=== PATIENT | male | born 1970 | race African-American/Black ===

== ENCOUNTER 2022-03-11 09:38 | Emergency (ER) | payer OTHER ==
[~2022-03-11] VITALS: Ht 180.3 cm; Wt 90.7 kg
[2022-03-11 09:51] VITALS: BP 166/92
[2022-03-11] MEDS ORDERED: CYCLOBENZAPRINE 10 MG TABLET PO ONE (10:30)
[2022-03-11] MEDS ORDERED: KETOROLAC TROMETHAMINE INJ 30 MG/ML VIAL IM ONE (10:30)
--- NOTE | 2022-03-11 10:34 | NUR ---
ICE PACK OFFERED BUT PT REFUSED.
[2022-03-11] MEDS ORDERED: CYCLOBENZAPRINE 10 MG TABLET ONE (10:37)
[2022-03-11] MEDS ORDERED: KETOROLAC TROMETHAMINE INJ 30 MG/ML VIAL ONE (10:37)
[2022-03-11] MEDS ORDERED: IBUP-1957 PO (10:44)
[2022-03-11] MEDS ORDERED: CYCL5TAB PO (10:44)
--- NOTE | 2022-03-11 11:07 | NUR ---
Patient discharged to home in stable condition. Written and verbal after care instructions given. Patient verbalizes understanding of instruction.
== END 2022-03-11 11:08 | disposition home or self-care (01) ==
LOC: ER 09:43
DX: S83.92XA Sprain of unspecified site of left knee, initial encounter (principal); I10 Essential (primary) hypertension; F17.200 Nicotine dependence, unspecified, uncomplicated; Z60.2 Problems related to living alone; Z79.899 Other long term (current) drug therapy; X58.XXXA Exposure to other specified factors, initial encounter; Y93.89 Activity, other specified; Y92.89 Other specified places as the place of occurrence of the external cause; Y99.8 Other external cause status
CPT/HCPCS: 73564; 96372; 99283; J1885

== ENCOUNTER 2022-06-06 06:09 | Emergency (ER) | payer OTHER ==
[~2022-06-06] VITALS: Ht 180.3 cm; Wt 88.5 kg
[~2022-06-06 06:09] MED LIST: CYCL5TAB PO; IBUP-1957 PO
--- NOTE | 2022-06-06 06:22 | NUR ---
BIBS FOR C/O PALPITATIONS SINCE THIS AM. -CP OR SOB. PT AWAKE AND ALERT BREATHING EVEN AND UNLABNORED. CHANGED INTO GOWN AND PLACED ON MONITOR AND NOTED TACHY IN 120S. MD WAS AT BEDSIDE FOR EVAL.
--- NOTE | 2022-06-06 06:32 | NUR ---
20G IV ESTABLISHED AT [facility]. BLOOD DRAWN AND SENT TO LAB
[2022-06-06 06:36] LABS: BASOPHILS # (AUTO) 0.1 K/uL (0.0-0.2); BASOPHILS % (AUTO) 1.2 % (0.0-2.0); EOSINOPHILS % (AUTO) 1.8 % (0.0-6.0); HEMATOCRIT 48 % (39-51); HEMOGLOBIN 15.2 g/dL (13.5-17.5); LYMPHOCYTES # (AUTO) 2.2 K/uL (0.8-4.8); LYMPHOCYTES % (AUTO) 29.1 % (20.0-44.0); MEAN CORPUSCULAR HGB CONC 32 g/dl (31.0-36.0); MEAN CORPUSCULAR VOLUME 81 fL (80-96); MONOCYTES # (AUTO) 0.7 K/uL (0.1-1.30); MONOCYTES % (AUTO) 9.4 % (2.0-12.0); NEUTROPHILS # (AUTO) 4.4 K/uL (1.8-8.9); NEUTROPHILS % (AUTO) 58.5 % (43.0-81.0); PLATELET COUNT (AUTO) 285 K/uL (150-450); RED BLOOD CELL COUNT(AUTO) 5.86 MIL/uL (4.5-6.0); WHITE BLOOD COUNT (AUTO) 7.6 K/uL (4.3-11.0)
--- NOTE | 2022-06-06 06:45 | NUR ---
XRAY AT BEDSIDE
[2022-06-06 06:50] LABS: CALCIUM, SERUM 9.5 mg/dL (8.5-10.1); CARBON DIOXIDE 27 mmol/L (21-32); CHLORIDE 102 mmol/L (98-107); CREATININE 1.5 mg/dL (0.6-1.3); GLUCOSE 173 mg/dL (74-106); SODIUM SERUM 139 mmol/L (136-145); UREA NITROGEN, BLOOD 18 mg/dL (7-18)
--- NOTE | 2022-06-06 08:45 | NUR ---
IV removed. Catheter intact and site benign. Pressure and 4x4 applied to site. No bleeding noted.
--- NOTE | 2022-06-06 08:50 | NUR ---
Patient discharged to home in stable condition. Written and verbal after care instructions given. Patient verbalizes understanding of instruction.
[2022-06-06 08:51] VITALS: BP 140/87
== END 2022-06-06 08:52 | disposition home or self-care (01) ==
LOC: ER 06:11
DX: R00.2 Palpitations (principal); I10 Essential (primary) hypertension; F17.210 Nicotine dependence, cigarettes, uncomplicated; Z60.2 Problems related to living alone; Z79.899 Other long term (current) drug therapy
CPT/HCPCS: 36415; 71045-TC; 80048-TC; 84484-TC; 85025-TC